=== PATIENT | male | born 1970 | race Caucasian/White ===

== ENCOUNTER 2025-04-17 06:48 | Day surgery (SDC) | payer OTHER ==
[2025-04-17] MEDS ORDERED: Propofol 200 MG/20 ML SDV ONE ×2 (07:07→07:30)
[2025-04-17] MEDS ORDERED: Dexamethasone 4 MG/ML 5 ML MDV ONE (07:08)
[2025-04-17] MEDS ORDERED: Ondansetron 4 MG/2 ML SDV ONE (07:08)
[2025-04-17] MEDS ORDERED: Midazolam 1 MG/ML 2 ML SDV ONE (07:12)
[2025-04-17] MEDS ORDERED: fentaNYL 100 MCG/2 ML SDV ONE ×2 (07:12→08:13)
[2025-04-17] MEDS ORDERED: dexmedeTOMIDine HCl 200 MCG/2 ML SDV ONE (07:14)
[2025-04-17] MEDS: Lactated Ringers 1,000 ML IV SCH (07:15)
[2025-04-17] MEDS ORDERED: Bupivacaine 0.5%/EPINEPHrine 1:200,000 30 ML SDV ONE (07:30)
[2025-04-17] MEDS ORDERED: ceFAZolin 2 GM in Water For Injection, Sterile 20 ML IVPUSH ONE (08:00)
[2025-04-17] MEDS ORDERED: Ketorolac 30 MG/ML SDV ONE (08:12)
[2025-04-17] MEDS ORDERED: Ondansetron 4 MG/2 ML SDV IVPUSH PRN (08:57)
[2025-04-17] MEDS ORDERED: Albuterol 0.083% 2.5 MG/3 ML Neb Soln NEB PRN (08:57)
[2025-04-17] MEDS ORDERED: fentaNYL 50 MCG/ML SDV IVPUSH PRN (08:57)
[2025-04-17] MEDS ORDERED: Naloxone 0.4 MG/ML SDV IVPUSH PRN (08:57)
[2025-04-17 11:45] VITALS: BP 113/75; PULSE 66
== END 2025-04-17 09:56 | disposition home or self-care (01) ==
LOC: MW.SDS 06:48
PROVIDERS: ATTEND Orthopaedic Surgery
DX: S83.251A Bucket-handle tear of lateral meniscus, current injury, right knee, initial encounter (principal); I10 Essential (primary) hypertension; Z87.891 Personal history of nicotine dependence; Z79.899 Other long term (current) drug therapy
CPT/HCPCS: 29881; J0690; J1100; J1885; J2003; J2704; J3010; J7120; J0665; J2250; J2405